=== PATIENT | male | born 1965 | race Caucasian/White ===

== ENCOUNTER 2017-10-09 12:38 | Emergency (ER) | payer OTHER, BC ==
[2017-10-09 12:44] VITALS: BP 133/93; PULSE 73; RESP 18; TEMP 97.3
[2017-10-09] MEDS ORDERED: methylPREDNISolone SOD SUCCI 125 MG/2 ML VIAL IM ONE (13:07)
[2017-10-09] MEDS ORDERED: KETOROLAC 30 MG/ML 1 ML VIAL IM STA (13:07)
--- NOTE | 2017-10-09 13:26 | ED ---
General Adult HPI - General Chief complaint: Extremity Problem,Nontraumatic Stated complaint: finger pain Time Seen by Provider: 10/09/17 12:46 Source: patient, RN notes reviewed Mode of arrival: ambulatory Limitations: no limitations - History of Present Illness Initial comments: 51-year-old male presents to the emergency department for a chief complaint of second right finger pain 3 days. Patient states he has a history of gout. Patient states he has had similar pain in his hand before and steroids have helped. Patient states he saw his primary care provider for this yesterday and was given Toradol but it did not help with the pain. Patient states he is in a golf tournament which finishes tomorrow and he has a large prize on the line and would really like to play. Patient denies any fevers or chills at home. Patient states the pain is all localized in the dorsal second MCP joint. Patient denies any pain in the wrist or other fingers. Patient denies any pain in the rest of the right upper extremity. Patient denies any acute injuries to the hand. Patient has no other complaints at this time including shortness of breath, chest pain, abdominal pain, nausea or vomiting, headache, or visual changes. - Related Data Home Medications Medication Instructions Recorded Confirmed Allopurinol [Zyloprim] 300 mg PO DAILY 10/27/15 10/27/15 Indomethacin [Indocin ER] 75 mg PO TID PRN 10/27/15 10/27/15 Previous Rx's Medication Instructions Recorded ALPRAZolam [Xanax] 0.5 mg PO Q8H PRN #15 tablet 10/27/15 amLODIPine BESYLATE [Norvasc] 5 mg PO DAILY #30 tab 10/27/15 Hydrocodone/Acetaminophen [Orcas 1 each PO Q6HR PRN #20 tab 02/10/17 5-325] predniSONE 60 mg PO DAILY #30 tab 02/10/17 HYDROcodone/APAP 5-325MG [Orcas 1 tab PO Q6HR PRN #10 tab 10/09/17 5-325] predniSONE 50 mg PO DAILY #5 tablet 10/09/17 Allergies Allergy/AdvReac Type Severity Reaction Status Date / Time celecoxib [From Celebrex] Allergy Anaphylaxis Verified 10/09/17 12:45 rosuvastatin calcium Allergy Rapid Verified 10/09/17 12:45 [From Crestor] Heart Rate Review of Systems ROS Statement: Those systems with pertinent positive or pertinent negative responses have been documented in the HPI. ROS Other: All systems not noted in ROS Statement are negative. Past Medical History Past Medical History: Hypertension Additional Past Medical History / Comment(s): gout History of Any Multi-Drug Resistant Organisms: None Reported Past Surgical History: Back Surgery, Cholecystectomy, Orthopedic Surgery Past Psychological History: No Psychological Hx Reported Smoking Status: Never smoker Past Alcohol Use History: Occasional Past Drug Use History: None Reported General Exam Limitations: no limitations General appearance: alert, in no apparent distress Head exam: Present: atraumatic, normocephalic, normal inspection Eye exam: Present: normal appearance ENT exam: Present: normal exam, mucous membranes moist Neck exam: Present: normal inspection, full ROM. Absent: tenderness, meningismus, lymphadenopathy Respiratory exam: Present: normal lung sounds bilaterally. Absent: respiratory distress, wheezes, rales, rhonchi, stridor Cardiovascular Exam: Present: regular rate, normal rhythm, normal heart sounds. Absent: systolic murmur, diastolic murmur, rubs, gallop, clicks Extremities exam: Present: tenderness (Tenderness to the dorsal second MCP joint. No tenderness on the palmar aspect of the first digit.), normal capillary refill (Refill less than 2 seconds and radial pulse 2+ in the right upper extremity.), joint swelling (Patient has mild swelling noted of the second right MCP joint. No swelling or redness on the palmar aspect of the right hand.), other (Sensation intact in the right upper extremity. There is no redness noted of the palmar aspect of the right second digit. Finger is not held in flexion and patient denies pain of the palmar aspect of the finger with extension.). Absent: full ROM (Patient has about 45 flexion and 10 extension of the second right digit.) Neurological exam: Present: alert, oriented X3 Course Vital Signs 10/09/17 12:39 Temperature 97.3 F L Pulse Rate 73 Respiratory 18 Rate Blood Pressure 133/93 O2 Sat by Pulse 99 Oximetry Medical Decision Making - Medical Decision Making 51-year-old male presents to the emergency department for a chief complaint of right second digit pain 3 days. Patient has a history of gout and has had similar occurrences before. Patient denies any acute injuries. Patient states in the past steroids helped. Patient was given a shot of Solu-Medrol and Toradol in the emergency department. Patient states he tolerates Toradol well and had a couple days ago. On exam there is swelling of the dorsal MCP joint. No pain or erythema of the palmar aspect of the second digit. Patient able to flex finger to 45 and extend to 10 actively. Neurovascular intact in the right upper extremity. Patient is likely having a flareup of gout or overuse injury. He will continue with oral steroid starting tomorrow. He will take Orcas for pain. He was educated not to drive or operate machinery while taking Orcas. He will follow up with primary care in 1-2 days. He will return if he has any worsening symptoms. Disposition Clinical Impression: Hand pain, right, Overuse injury Disposition: HOME SELF-CARE Condition: Good Instructions: Gout (ED), RICE Therapy (ED) Additional Instructions: Please take steroid as directed. Please take Motrin for pain. If pain is severe take Orcas. Please rest ice and elevate the hand. Return to the emergency department if you have any worsening symptoms. Otherwise follow-up with primary care in 1-2 days. Prescriptions: HYDROcodone/APAP 5-325MG [Orcas 5-325] 1 tab PO Q6HR PRN #10 tab PRN Reason: Pain predniSONE 50 mg PO DAILY #5 tablet Is patient prescribed a controlled substance at d/c from ED?: Yes Referrals: Cosme Lazar MD [Primary Care Provider] - 1-2 days Time of Disposition: 13:24
== END 2017-10-09 13:30 | disposition home or self-care (01) ==
LOC: EC 12:38
DX: M70.841 Other soft tissue disorders related to use, overuse and pressure, right hand (principal); M25.441 Effusion, right hand; M10.9 Gout, unspecified; Z79.899 Other long term (current) drug therapy; Z88.6 Allergy status to analgesic agent; Z88.8 Allergy status to other drugs, medicaments and biological substances
CPT/HCPCS: 99283; 96372 ×2; J2930; J1885

== ENCOUNTER → 2021-03-13 | Outpatient (CLI) | payer OTHER ==
[~2021-03-13] MED LIST: SODIUM CHLORIDE 0.9% 50 ML IVPB ONE; SODIUM CHLORIDE 0.9% 500 ML 500 ML in EMPTY BAG 1 BAG IV PRN; SOTROVIMAB (EUA) 500 MG in SODIUM CHLORIDE 0.9% 100 ML IVPB ONE
[2021-03-13 10:24] VITALS: RESP 16; TEMP 98
[2021-03-13 11:34] VITALS: BP 162/105; PULSE 69
== END | disposition home or self-care (01) ==
LOC: PROCWHC3 09:57
PROVIDERS: ATTEND Family Medicine
DX: U07.1 COVID-19 (principal)
CPT/HCPCS: 96360; 96365; Q0247; M0247

== ENCOUNTER → 2021-07-19 | Outpatient (CLI) | payer OTHER ==
--- NOTE | 2021-07-20 08:28 | US ---
EXAMINATION TYPE: US st tissue neck DATE OF EXAM: 07/19/2021 COMPARISON: NONE CLINICAL HISTORY: 55-year-old male R59.0 LOCALIZED ENLARGED LYMPH NODES. Pt states small, palpable giovanna mp left lateral neck x few years- denies pain TECHNIQUE: Targeted ultrasound examination along the lateral aspect of the left neck at the patient's palpable site. FINDINGS: Front Desk Associate notes: Left lateral neck scanned- at area of pt's palpable a small, normal appearing lymph node is visuali zed= 0.6 x 0.5 cm AP measurement This shows preserved fatty hilum and thin uniform cortex. IMPRESSION: Targeted scanning at the patient's palpable site along the lateral left neck shows a nonenlarged 6 mm normal-appearing lymph node. If any enlarging palpable abnormality is appreciated, the area can be r escanned.
== END | disposition home or self-care (01) ==
LOC: RADUSWWP 16:13
PROVIDERS: ATTEND Family Medicine
DX: R59.0 Localized enlarged lymph nodes (principal)
CPT/HCPCS: 76536

== ENCOUNTER → 2022-06-21 | Outpatient (CLI) | payer OTHER ==
--- NOTE | 2022-06-21 08:15 | US ---
EXAMINATION TYPE: US abdomen complete DATE OF EXAM: 06/21/2022 COMPARISON: NONE CLINICAL HISTORY: R74.8 abn levels of other serum enzymes. TECHNIQUE: Multiple sonographic images of the abdomen are obtained. FINDINGS: EXAM MEASUREMENTS: Liver Length: 13.8 cm Gallbladder Wall: Surgically absent CBD: 0.4 cm Spleen: 12.7 cm Right Kidney: 10.4 x 5.1 x 5.5 cm Left Kidney: 11.4 x 4.9 x 5.0 cm DATA CONTROL CLERK NOTES: Patient of large body habitus with severe overlying bowel gas, technically difficult, limited ultraso und Pancreas: Obscured by bowel gas Liver: attenuation, limited views Gallbladder: Surgically absent Evidence for sonographic Ibarra's sign: no CBD: wnl as seen, limited visualization Spleen: wnl Right Kidney: wnl as seen, limited visualization Left Kidney: wnl as seen, limited visualization Upper IVC: wnl as seen, limited visualization Abd Aorta: Partially obscured by overlying bowel gas, portions visualized wnl The liver is homogenous and increased in echotexture.. The intrahepatic portion of the IVC and proxi mal abdominal aorta are within normal limits. Common bile duct is unremarkable. The visualized port ions of the pancreas are homogenous. The spleen is unremarkable. Kidneys are symmetric and free of hydronephrosis. No renal lesions are seen. IMPRESSION: Limited evaluation secondary to patient body habitus. Hepatocellular disease commonly relating to hepatic steatosis.
== END | disposition home or self-care (01) ==
LOC: RADUSWWP 06:50
PROVIDERS: ATTEND Family Medicine
DX: K76.0 Fatty (change of) liver, not elsewhere classified (principal); K76.89 Other specified diseases of liver; R74.8 Abnormal levels of other serum enzymes
CPT/HCPCS: 76700

== ENCOUNTER → 2022-12-07 | Outpatient (CLI) | payer BC ==
--- NOTE | 2022-12-08 13:02 | MR ---
EXAMINATION TYPE: MR cervical spine wo con DATE OF EXAM: 12/07/2022 INDICATION: Patient age: Male; 57 years old; Reason for study: R20.2 PARESTHESIA OF SKIN. Neck pain, RUE radiculopathy. COMPARISON: TECHNIQUE: Multi planar, multi sequence imaging was performed utilizing: T1-weighted, T2-weighted, an d turbo inversion recovery imaging of the cervical spine. IV Contrast: FINDINGS: Alignment: The cervical vertebral bodies have preserved heights. Alignment is within normal limits gi dustin patient positioning. Bones: Bone signal is within normal limits. No abnormal bone marrow edema on inversion recovery seque nces. Cord: Central syrinx at the level mid C6 extending 9 mm inferiorly to the inferior endplate of C6. Th e spinal cord is unremarkable with regards to their signal intensity and morphology. Discs: Multilevel disc desiccation is present. C2-C3: No significant disc pathology. The spinal canal is patent. Bilateral facet and uncovertebral joint arthropathy are present with mild bilateral neural foraminal stenosis. C3-C4: No significant disc pathology. The spinal canal is patent. Bilateral facet and uncovertebral joint arthropathy are present with mild bilateral neural foraminal stenosis. C4-C5: No significant disc pathology. The spinal canal is patent. Bilateral facet and uncovertebral joint arthropathy are present with mild to moderate right neural foraminal stenosis. The left neural foramen is patent. C5-C6: No significant disc pathology. The spinal canal is patent. Bilateral facet and uncovertebral joint arthropathy are present with mild to moderate bilateral neural foraminal stenosis. C6-C7: No significant disc pathology. The spinal canal is patent. No neural foraminal stenosis. C7-T1: No significant disc pathology. The spinal canal is patent. No neural foraminal stenosis. Other: None. IMPRESSION: 1. Central cord signal at the level of the C6 suggestive syrinx. 2. No evidence for disc herniation or significant spinal canal stenosis. 3. Mild disc degeneration with associated osteoarthritic changes.
== END | disposition home or self-care (01) ==
LOC: RADMRIMAIN 17:33
PROVIDERS: ATTEND Family Medicine
DX: M50.10 Cervical disc disorder with radiculopathy, unspecified cervical region (principal); M47.22 Other spondylosis with radiculopathy, cervical region; R20.2 Paresthesia of skin
CPT/HCPCS: 72141

== ENCOUNTER 2024-01-01 08:38 | Day surgery (SDC) | payer BC, OTHER ==
[2024-01-01] MEDS: IV FLUID CONTINUATION 1,000 ML IV ONE (09:48)
[2024-01-01] MEDS: LACTATED RINGERS 1,000 ML BAG IV STA (09:56)
[2024-01-01 10:01] VITALS: TEMP 97.7
[2024-01-01] MEDS ORDERED: PROPOFOL 10 MG/ML 20 ML VIAL IV ONE (10:14)
--- NOTE | 2024-01-01 10:28 | P.PCN ---
Date of Procedure: 01/01/24 Procedure(s) Performed: BRIEF HISTORY: Patient is a 58-year-old pleasant white male scheduled for an elective colonoscopy as a part of screening for colon cancer. PROCEDURE PERFORMED: Colonoscopy. PREOPERATIVE DIAGNOSIS: Screening for colon cancer. IV sedation per Anesthesia. PROCEDURE: After informed consent was obtained, the patient, was brought into the endoscopy unit. IV sedation was administered by Anesthesia under continuous monitoring. Digital rectal examination was normal. Initially the Olympus CF-160 flexible video colonoscope was then inserted in the rectum, gradually advanced into the cecum without any difficulty. Careful examination was performed as the scope was gradually being withdrawn. Ileocecal valve and the appendiceal orifice were visualized and appeared normal. Prep was excellent. Mucosa of the cecum, ascending colon, transverse colon, descending colon, sigmoid colon, and rectum appeared normal. Retroflexion was performed in the rectum and no lesions were seen. The patient tolerated the procedure well. IMPRESSION: Normal-appearing colon from rectum to cecum no evidence of colorectal neoplasia. RECOMMENDATIONS: Findings of this examination were discussed with the patient as well as his family. He was advised to have repeat screening colonoscopy in 10 years but.
[2024-01-01 10:37] VITALS: RESP 18
[2024-01-01 11:07] VITALS: BP 130/82; PULSE 75
== END 2024-01-01 11:11 ==
LOC: ORWHC2ENDO 08:38
PROVIDERS: ATTEND Internal Medicine Gastroenterology
DX: Z12.11 Encounter for screening for malignant neoplasm of colon
CPT/HCPCS: 45378